=== PATIENT | female | born 1985 | race American Indian/Alaskan Native ===

== ENCOUNTER 2016-08-12 03:01 | Emergency (ER) | payer MEDICAID ==
[~2016-08-12] VITALS: Ht 157.5 cm; Wt 88.5 kg
[2016-08-12] MEDS ORDERED: ANXIETY PILL (03:09)
[2016-08-12] MEDS ORDERED: DEXAMETHASONE 4 MG/ML, 1ML ONE (03:57)
[2016-08-12] MEDS ORDERED: METOCLOPRAMIDE 5 MG/ML, 2ML ONE (03:57)
[2016-08-12] MEDS ORDERED: KETOROLAC 30 MG/1 ML ONE (03:57)
[2016-08-12] MEDS ORDERED: DIPHENHYDRAMINE 50 MG/ML, 1ML ONE (03:57)
[2016-08-12] MEDS ORDERED: KETOROLAC 30 MG/1 ML IVPush ONE (04:00)
[2016-08-12] MEDS ORDERED: METOCLOPRAMIDE 5 MG/ML, 2ML IVPush ONE (04:00)
[2016-08-12] MEDS ORDERED: DEXAMETHASONE 4 MG/ML, 1ML IVPush ONE (04:00)
[2016-08-12] MEDS ORDERED: SODIUM CHLORIDE 0.9% 1,000ML IVBOLUS ONE (04:00)
[2016-08-12] MEDS ORDERED: DIPHENHYDRAMINE 50 MG/ML, 1ML IVPush ONE (04:00)
[2016-08-12 05:40] VITALS: BP 99/68
== END 2016-08-12 05:49 | disposition home or self-care (01) ==
LOC: ED 05:42
DX: G43.019 Migraine without aura, intractable, without status migrainosus (principal); E87.6 Hypokalemia; F17.200 Nicotine dependence, unspecified, uncomplicated; Z90.49 Acquired absence of other specified parts of digestive tract
CPT/HCPCS: 93005; 96374; 96375; 99284; J1100; J1200; J1885; J2765; J7030